=== PATIENT | male | born 1970 | race Caucasian/White ===

== ENCOUNTER 2016-09-07 14:49 | Emergency (ER) | payer MEDICARE, OTHER ==
[2016-09-07] MEDS ORDERED: IOPAMIDOL 300 (61%) 150 ML VIAL IV ONE (14:50)
[2016-09-07 15:44] LABS: SPECIFIC GRAVITY 1.015 (1.001-1.030); URINE BILIRUBIN NEGATIVE (NEGATIVE); URINE BLOOD 3+ (NEGATIVE); URINE GLUCOSE (UA) NEGATIVE (NEGATIVE); URINE LEUKOCYTE ESTERASE NEGATIVE (NEGATIVE); URINE NITRITE NEGATIVE (NEGATIVE); URINE PROTEIN 2+ (NEGATIVE); URINE UROBILINOGEN NORMAL (0-1 mg/dl)
[2016-09-07 15:46] LABS: URINE APPEARANCE CLEAR; URINE COLOR AMBER
[2016-09-07 15:53] LABS: MEAN CORPUSCULAR HGB CONC 35.7 g/dl (33.0-37.0); RED CELL DISTRIBUTION WIDTH 11.9 % (11.5-14.5)
[2016-09-07] MEDS ORDERED: ACETAMINOPHEN 500 MG TABLET ONE (15:53)
[2016-09-07] MEDS ORDERED: ONDANSETRON 4 MG/2ML 2 ML VIAL ONE (15:53)
[2016-09-07] MEDS ORDERED: LACTATED RINGERS 1,000 ML ONE (15:53)
[2016-09-07 15:59] LABS: URINE BACTERIA 0; URINE EPITHELIAL CELLS 0-1 /hpf; URINE RBC 0-1 /hpf; URINE WBC NEG /hpf
[2016-09-07 16:02] LABS: ABSOLUTE NEUTROPHIL COUNT 2.8 K/mm3 (1.8-7.7); BASO % 0.3 % (0.2-1.0); EOS % 0.3 % (0.9-2.9); HEMATOCRIT 45.9 % (32.0-52.0); HEMOGLOBIN 16.4 gm/l (14.0-18.0); IMM NEUT% 1.2 % (0-1); LYMPH # 0.4 (1.0-4.8); LYMPH % 12.7 % (15-45); MEAN CELL VOLUME 88.3 fl (80.0-94.0); MEAN CORPUSCULAR HEMOGLOBIN 31.5 pg (27.0-31.0); MEAN PLATELET VOLUME 11.2 fl (7.4-10.4); MONO # 0.1 (0.0-0.8); MONO % 3.5 % (4-12); PLATELET COUNT 65 K/mm3 (130-400)
[2016-09-07 16:12] LABS: ALB/GLOB RATIO 1.8 (>1.0); ALBUMIN 4.1 gm/dL (3.5-5.7); CALCIUM 8.9 mg/dL (8.6-10.3)
[2016-09-07 16:45] LABS: BAND 26 % (0-10); BASOPHIL 0 % (0-1); EOSINOPHIL 1 % (1-3); LYMPHOCYTE 11 % (15-45); MONOCYTE 9 % (4-12); NEUTROPHILS 53 % (43-75); PLATELET ESTIMATE DECREASED (NORMAL); TOTAL CELLS COUNTED 100
--- NOTE | 2016-09-07 17:01 | CT ---
ABD/PELVIS W/ CON COMPARISON: None. HISTORY: Right lower quadrant pain. Costovertebral angle tenderness. Hematuria. Technique: Intravenous injection 125 mL Isovue 300. Using a [employer] Aquilion [address] scanner, images were obtained from the diaphragm to the floor the pelvis. An automated dose reduction technique was used to minimize patient radiation dose. Dose information: CTDIvol (mGy): 12.00 DLP(mGycm): 681.80 FINDINGS: Lung bases: Normal. Inferior mediastinum and heart: Normal. Liver: Normal. Gallbladder:Normal. Bile ducts: Normal. Pancreas: Normal. Spleen: Normal. Adrenal glands: Normal. Kidneys: Simple cyst, posterior right kidney. Normal enhancement and size of both kidneys. No hydronephrosis or calculus. No mass. Ureters: Normal Urinary bladder: Normal. Prostate gland and seminal vesicles: Normal. Blood vessels: Normal Lymph nodes: Normal Stomach: Normal Duodenum: Normal Small intestine: Normal Appendix: Normal. Retrocecal at the inferior margin of the right lobe of the liver. Colon: Normal Abdominal wall and supporting musculature: Small left inguinal hernia containing fat. Bones: Degenerative changes in the spine. IMPRESSION: 1. 2.1 x 1.5 cm simple cyst of the right kidney. No evidence of polynephritis, calcification, or hydronephrosis. 2. Incidental findings include retrocecal location of the appendix, located at the inferior margin of the right lobe of the liver, small left inguinal hernia containing fat, and degenerative changes in the spine. Report was sent to the emergency department [facility] medical record system, 09/07/2016 at 16:57
--- NOTE | 2016-09-07 18:04 | RAD ---
History: Fever for 3 days with low back pain. Comparison: 03/23/2016. Technique: 2 views Findings: The examination demonstrates a low inspiratory volume. The heart size is relatively stable. There is suggested asymmetric density identified within the right middle lobe. No effusion is seen. The hilar and mediastinal structures are grossly intact. Impression: 1. A low inspiratory volume with findings of a questionable right middle lobe infiltrate.
[2016-09-07] MEDS ORDERED: KETOROLAC TROMETHAMINE 15 MG/ML VIAL ONE (18:55)
== END 2016-09-07 20:26 | disposition home or self-care (01) ==
LOC: ED 14:49
DX: N30.01 Acute cystitis with hematuria (principal); I10 Essential (primary) hypertension; J45.909 Unspecified asthma, uncomplicated; F17.210 Nicotine dependence, cigarettes, uncomplicated
CPT/HCPCS: 83605; 83690; 85025; 87086; 80053; 81001; 71020; 74177; 87804; 96375; 99284 ×2; 96374; 96361; J1885; A9270; J2405; J7120; Q9967